=== PATIENT | female | born 2000 | race Two or more races ===

== ENCOUNTER 2024-05-11 16:57 | Emergency (ER) | payer OTHER ==
[~2024-05-11] VITALS: Ht 157.5 cm; Wt 88.9 kg
[2024-05-11] MEDS ORDERED: METOCLOPRAMIDE HCL 5 MG/ML VIAL IV ONE (19:00)
[2024-05-11] MEDS ORDERED: 0.9 % SODIUM CHLORIDE 500 ML IV ONE (19:00)
[2024-05-11] MEDS ORDERED: KETOROLAC TROMETHAMINE 30 MG VIAL IV ONE (19:00)
[2024-05-11] MEDS ORDERED: METOCLOPRAMIDE HCL 5 MG/ML VIAL ONE (19:14)
[2024-05-11] MEDS ORDERED: KETOROLAC TROMETHAMINE 30 MG VIAL ONE (19:14)
[2024-05-11] MEDS ORDERED: NAPROXEN500 MG PO (22:21)
[2024-05-11] MEDS ORDERED: METOCLOPRAMIDE10 MG PO (22:21)
== END 2024-05-11 22:35 | disposition home or self-care (01) ==
LOC: ER 17:00
DX: G43.909 Migraine, unspecified, not intractable, without status migrainosus (principal); Z91.013 Allergy to seafood

== ENCOUNTER 2024-08-20 10:05 | Emergency (ER) | payer OTHER ==
[~2024-08-20] VITALS: Ht 157.5 cm; Wt 81.6 kg
[~2024-08-20 10:05] MED LIST: METOCLOPRAMIDE10 MG PO; NAPROXEN500 MG PO
[2024-08-20] MEDS ORDERED: KETOROLAC TROMETHAMINE 60 MG VIAL IM ONE ×2 (10:24→10:30)
[2024-08-20] MEDS ORDERED: DEXAMETHASONE SODIUM PHOSPHATE 4 MG/ML VIAL ONE (10:24)
[2024-08-20] MEDS ORDERED: DEXAMETHASONE SODIUM PHOSPHATE 4 MG/ML VIAL IM ONE (10:30)
== END 2024-08-20 12:41 | disposition home or self-care (01) ==
LOC: ER 10:05
DX: S96.912A Strain of unspecified muscle and tendon at ankle and foot level, left foot, initial encounter (principal); W10.8XXA Fall (on) (from) other stairs and steps, initial encounter; Y93.89 Activity, other specified; Y92.018 Other place in single-family (private) house as the place of occurrence of the external cause; Y99.9 Unspecified external cause status; Z91.013 Allergy to seafood

== ENCOUNTER 2024-10-25 18:54 | Emergency (ER) | payer OTHER ==
[~2024-10-25] VITALS: Ht 157.5 cm; Wt 99.3 kg
[2024-10-25] MEDS ORDERED: CEFTRIAXONE SODIUM 1,000 MG VIAL IM STA (20:07)
[2024-10-25] MEDS ORDERED: KETOROLAC TROMETHAMINE 30 MG VIAL IM STA (20:07)
[2024-10-25] MEDS ORDERED: KETOROLAC TROMETHAMINE 30 MG VIAL ONE (21:13)
[2024-10-25] MEDS ORDERED: CEFTRIAXONE SODIUM 1,000 MG VIAL ONE (21:15)
[2024-10-25] MEDS ORDERED: LIDOCAINE HCL/MPF 1% 5ML VIAL IJ ONE (21:15)
[2024-10-25 22:11] VITALS: BP 110/70; O2SAT 100
== END 2024-10-25 22:12 | disposition home or self-care (01) ==
LOC: ER 18:54
DX: L02.818 Cutaneous abscess of other sites (principal); Z91.013 Allergy to seafood

== ENCOUNTER 2024-11-12 09:56 | Emergency (ER) | payer OTHER ==
[~2024-11-12] VITALS: Ht 157.5 cm; Wt 104.3 kg
[2024-11-12] MEDS ORDERED: FAMOTIDINE/PF 20 MG/2 ML VIAL IV STA (11:21)
[2024-11-12] MEDS ORDERED: ONDANSETRON HCL 2 MG/ML VIAL IV STA (11:21)
[2024-11-12] MEDS ORDERED: 0.9 % SODIUM CHLORIDE 1,000 ML IV STA (11:23)
[2024-11-12 14:04] LABS: BASO % 0.4 % (0.1-1.2); EOS # 0.30 (0.04-0.54); EOS % 2.5 % (0.7-7.0); LYMPH # 2.64 (1.18-3.74); LYMPH % 22.0 % (19.3-53.1); MEAN PLATELET VOLUME 12.70 fl (9.4-12.4); MONO # 0.61 (0.24-0.82); MONO % 5.1 % (4.7-12.5); NEUT # 8.34 (1.56-6.13); NEUT % 69.5 % (34.0-71.1); RED CELL DISTRIBUTION WIDTH 13.8 % (11.6-14.4)
[2024-11-12 14:28] LABS: ALT/SGPT 21.0 U/L (12-78); AST/SGOT 11.0 U/L (15-37); BILIRUBIN TOTAL 0.77 mg/dL (0.3-1.2); BUN CREA RATIO 13.0 (7.0-25.0); CREATININE SERUM 0.47 mg/dL (0.55-1.02); GFR 160.18; GLOBULINA 3.8 G/DL (2.4-3.5); GLUCOSE FASTING 81.0 mg/dL (65-100); OSMOLALITY SERUM 280.0 MOSM/KG (275-295)
[2024-11-12 14:49] LABS: URINE APPEARANCE Clear; URINE BILIRRUBIN Negative (NEGATIVE); URINE BLOOD Large; URINE COLOR Orange; URINE GLUCOSE Negative (NEGATIVE); URINE KETONE Negative (NEGATIVE); URINE LEUKOCYTE Trace; URINE NITRATE Negative; URINE PROTEIN Trace (NEGATIVE); URINE UROBILINOGEN 0.2 E.U./dl
[2024-11-12 14:53] LABS: URINE BACTERIA 1049.9 uL (0.0-1933); URINE EPITHELIAL CELLS 28.9 uL (0.0-38.8); URINE RBC 14.3 uL (0.0-20.8); URINE WBC 45.9 uL (0.0-23.2)
[2024-11-12 14:59] LABS: URINE CAST 0.00 uL (0.0-1.40)
[2024-11-12] MEDS ORDERED: KETOROLAC TROMETHAMINE 30 MG VIAL IV ONE (20:30)
== END 2024-11-12 21:55 | disposition home or self-care (01) ==
LOC: ER 09:57
PROVIDERS: General Practice
DX: R10.2 Pelvic and perineal pain (principal); N83.209 Unspecified ovarian cyst, unspecified side; R10.9 Unspecified abdominal pain; Z91.013 Allergy to seafood
CPT/HCPCS: 36415; 74177; Q9965